=== PATIENT | male | born 1965 | race Caucasian/White ===

== ENCOUNTER 2018-09-02 20:52 | Emergency (ER) | payer SELFPAY ==
[~2018-09-02 20:52] MED LIST: FLEXERIL5 MG PO; METOPROLOL SR100 MG; TRAMADOL HCL50 MG PO
== END 2018-09-03 00:02 | disposition home or self-care (01) ==
LOC: ED 20:52
DX: S46.911A Strain of unspecified muscle, fascia and tendon at shoulder and upper arm level, right arm, initial encounter (principal); X50.0XXA Overexertion from strenuous movement or load, initial encounter; Y93.89 Activity, other specified; Y92.89 Other specified places as the place of occurrence of the external cause; Y99.8 Other external cause status